=== PATIENT | male | born 1985 | race American Indian/Alaskan Native ===

== ENCOUNTER 2020-08-06 20:22 | Emergency (ER) | payer SELFPAY ==
[2020-08-06 21:02] VITALS: BP 158/103
--- NOTE | 2020-08-06 21:15 | Emergency Department Report ---
Chief Complaint: Skin Rash Stated Complaint: BODY RASH - HPI History of Present Illness: 34-year-old -[place] male presents to emergency room for right lower extremity rash that itches he noticed 3 days ago. Patient is tried nothing [id number] for his complaint. Patient denies any pain. - Exam Vital Signs: Vital Signs 08/06/20 21:01 Temperature 98.0 F Pulse Rate 95 H Respiratory 18 Rate Blood Pressure 158/103 O2 Sat by Pulse 97 Oximetry Physical Exam: Alert and oriented x3 no acute distress nontoxic in appearance Breathing with no difficulties no accessory muscle use. Ambulatory without difficulties Skin rash that is purpleish red raised borders nontender to palpate MSE screening note: Focused history and physical exam performed. Due to findings the following was ordered: 34-year-old -[place] male presents to emergency room for right lower extremity rash that itches he noticed 3 days ago. Patient is tried nothing [id number] for his complaint. Patient denies any pain. Recommend [id number]-dpsdfuc hydrocortisone and follow-up with a primary care provider ED Disposition for MSE Disposition: MED SCREENING EXAM-LEFT Is pt being admited?: No Does the pt Need Aspirin: No Condition: Stable Instructions: Rash, Adult Additional Instructions: Recommend [id number] hydrocortisone. Follow-up with your primary care provider. Referrals: [facility] [Provider Group] - 3-5 Days
== END 2020-08-06 21:13 | disposition left against medical advice (07) ==
LOC: ED 20:22
DX: R21 Rash and other nonspecific skin eruption (principal); Z53.21 Procedure and treatment not carried out due to patient leaving prior to being seen by health care provider